=== PATIENT | male | born 1995 | race Caucasian/White ===

== ENCOUNTER 2018-03-25 01:03 | Emergency (ER) | payer BC ==
--- NOTE | 2018-03-25 03:00 | ED Physician Documentation ---
PD HPI UPPER EXT INJURY - Stated complaint Stated Complaint: FINGER LAC - Chief complaint Chief Complaint: Laceration - History obtained from History obtained from: Patient PD PAST MEDICAL HISTORY - Past Medical History Past Medical History: No Cardiovascular: None Respiratory: None Neuro: None Endocrine/Autoimmune: None GI: None : None HEENT: None Psych: None Musculoskeletal: None Derm: None - Past Surgical History Past Surgical History: Yes - Social History Does the pt smoke?: No Smoking Status: Never smoker Does the pt drink ETOH?: Yes Does the pt have substance abuse?: No - Immunizations Immunizations are current?: Yes - POLST Patient has POLST: No PD ED PE EXPANDED - Extremities KATHERINE UE/Hands Visual: 1 - laceration (1cm) 2 - laceration (crescentic laceration with small pedicle (the laceration is 3/4 of a ekwok, total length 1.5cm)) Results - Vitals Vitals: Vital Signs - 24 hr 03/25/18 03/25/18 01:08 04:15 Temperature 36.6 C 36.8 C Heart Rate 71 72 Respiratory 16 14 Rate Blood Pressure 134/88 H 134/83 H O2 Saturation 98 97 Oxygen O2 Source Room air Procedures - Laceration (location) Finger left Length in cm: 2.5 (total length of two lacerations ) Wound type: Linear, Curved, Clean Neurovascular status: Sensory intact, Motor intact, Vascular intact Tendon involvement: Tendon intact Skin layer closure: Dermabond Other: Patient tolerated well, No complications, Neurovascular intact, Tetanus UTD Complexity: Simple PD MEDICAL DECISION MAKING - ED course Complexity details: considered differential, d/w patient ED course: left 4th digit laceration is superficial, reapproximated with tissue adhesive. left middle finger laceration is nearly an avulsion but a small pedicle remains; the flap is only 2-3mm in depth with shallow bevelled edges. It was tacked down with tissue adhesive as well. Departure - Departure Disposition: 01 Home, Self Care Clinical Impression: Laceration Condition: Good Instructions: ED Laceration Ext Skin Glue Discharge Date/Time: 03/25/18 04:20
[2018-03-25 04:16] VITALS: BP 134/83
== END 2018-03-25 04:20 | disposition home or self-care (01) ==
LOC: ED 01:03
DX: S61.213A Laceration without foreign body of left middle finger without damage to nail, initial encounter (principal); S61.215A Laceration without foreign body of left ring finger without damage to nail, initial encounter; W45.8XXA Other foreign body or object entering through skin, initial encounter
CPT/HCPCS: 12001; 99282; 99283